=== PATIENT | male | born 1965 | race Caucasian/White ===

== ENCOUNTER 2024-06-05 14:49 | Emergency (ER) | payer OTHER, SELFPAY ==
[2024-06-05 14:57] VITALS: BP 177/110
[2024-06-05 15:08] VITALS: BP 161/92
--- NOTE | 2024-06-05 15:21 | ED.GENMED ---
History of Present Illness
General
Chief Complaint: Eye Problems
Source: patient
Exam Limitations: none
Time Seen by Provider: 06/05/24 15:04
Nursing documentation reviewed up to this point in time: agreed with
History of Present Illness
History of Present Illness:
Patient is a 58 year old male presenting to the emergency department for xray of his right orbit. Patient has an MRI scheduled of his brain tomorrow and was called by the MRI telemarketing supervisor stating that he needed an x-ray of his orbit to rule out
retained metal in right eye following injury > 25 years ago prior to receiving MRI.
Patient describes an injury at work occurring about 25 years ago where a drill bit went into his right eye. He had emergency surgery at that time. He has had no complications since. He has no reason to believe there is any retained metal.
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
Patient has no current complaints today. He simply came to the emergency department to receive x-ray of his orbit.
Review of Systems
Review of Systems
Allergies reviewed?: Yes
All Other Systems: ROS reviewed and negative except as documented in HPI and ROS
Phy Exam
Physical Exam
Physical Exam:
Vitals: Patient's vital signs are stable. Afebrile
General: Patient is well appearing, no acute distress
Skin: Warm and dry, no rashes or lesions
Head: Normocephalic, atraumatic
Eyes: No obvious trauma to right orbit. No proptosis. No obvious foreign body. No tearing. Sclera nonicteric. EOMs intact. No nystagmus.
Throat: Protecting airway
Neck: Normal ROM, no cervical spine tenderness, no meningismus
Cardiac: Regular rate and rhythm, no murmurs.
Pulm: Normal respiratory effort, no wheezes, rales, rhonchi heard on exam.
Abdomen: No abdominal tenderness.
Extremities: No evidence of cyanosis or edema
Neuro: Grossly intact.
Psychiatric: Normal affect.
Course
Orders/Labs/Results
Orders:
Orders
06/05/24 15:21
CR Orbits - Pre Mri Urgent
Comment: s/p injury 25 years ago; MRI brain tomorrow
Reason For Exam: Eval right orbit r/o metal
Vital Signs
Initial and Last Documented VS:
Initial Vital Signs
Temp Pulse Resp BP Pulse Ox
98.0 F 91 16 177/110 98
06/05/24 14:57 06/05/24 14:57 06/05/24 14:57 06/05/24 14:57 06/05/24 14:57
Last Documented Vital Signs
Temp Pulse Resp BP Pulse Ox
98.0 F 89 16 161/92 98
06/05/24 14:57 06/05/24 15:08 06/05/24 15:08 06/05/24 15:08 06/05/24 14:57
MDM/Problems Addressed
Differential Diagnosis Includes:
Known to: Screening exam for MRI
MDM/Problems Addressed:
58-year-old male presenting for x-ray of right orbit as screening exam prior to MRI tomorrow. Patient had work injury over 25 years ago with a drill bit went into his right eye. This was operated on at the time of injury. No known foreign body in
right eye. Patient has outpatient MRI scheduled tomorrow by his neurologist�need to rule out any metal in right eye prior to the study. Patient has no current complaints today. No other concerns. Patient hypertensive, otherwise no significant
abnormalities. Physical exam as above. Patient well-appearing, in no apparent distress. No obvious signs of trauma. Right eye without any obvious foreign body or signs of trauma. Patient without any focal neurologic deficits on exam. An x-ray
of the orbit was obtained which show no evidence of radiopaque foreign body. Patient given report of x-ray. Stable for discharge and to proceed with MRI as scheduled. Return precautions discussed. Case discussed with attending physician.
Chronic conditions affecting care:
N/A
Acute Exacerbation and/or Progression of Chronic Illness:
N/A
*Radiology
Radiology exam reviewed: preliminary read by ED provider and radiology read reviewed (No evidence of radiopaque foreign body)
*Pulse Oximetry
Patient hypoxic: no
*EKG
Interpreted by ED Provider?: NA
*Field Assembly Supervisor Interpretation
Rate: Field Assembly Supervisor- N/A
*Critical Care Note
Total Time (30-74mins, 75-104mins- exclusive of procedures): Not Applicable
ED Attending Note
-
Portions of this chart may have been created with voice recognition software.� Occasional wrong word or��sound alike� substitutions may have occurred due to the inherent limitations of voice recognition software.
Discharge Plan
Departure
Patient Disposition: Home (Routine Discharge)
Date of Disposition: 06/05/24
Time of Disposition: 15:58
Patient with high blood pressure during this ER visit?: Yes
Condition: Good
Covid-19: Not Applicable
Discharge Problem:
Medical screening exam for MRI
Referrals:
NONE,* [Family Provider] -
Activity Restrictions/Additional Instructions:
-RETURN TO THE EMERGENCY DEPARTMENT WITH ANY SEVERE HEADACHE, HIGH FEVERS, CHEST PAIN, SHORTNESS OF BREATH, OR ANY OTHER CONCERNS
As discussed�your x-ray showed no evidence of a foreign body today. You should keep your appointment for your MRI as scheduled for tomorrow. Ret.urn to the emergency department with any further concerns
Follow-up with primary care / neurology as needed for further care
Interventions
Interventions:
*Risk Screen - Suicide Last Done: 06/05/24 14:57
*General Assessment Last Done: 06/05/24 16:09
*Neglect/Abuse Screening Last Done: 06/05/24 14:57
*Nursing Disposition Last Done: 06/05/24 16:09
Discharge Date and Time
Discharge Date/Time: 06/05/24 16:09
Print Language: ICELANDIC
== END 2024-06-05 16:09 | disposition home or self-care (01) ==
LOC: EMR 14:49
PROVIDERS: EMERGENCY PHYSICIAN Emergency Medicine
DX: Z13.9 Encounter for screening, unspecified (principal); R03.0 Elevated blood-pressure reading, without diagnosis of hypertension; Z87.820 Personal history of traumatic brain injury
CPT/HCPCS: 99283; 70030

== ENCOUNTER → 2024-06-06 07:14 | Outpatient (REF) | payer OTHER, SELFPAY | LOC: PAVMRI 07:14 | PROVIDERS: ATTENDING PHYSICIAN Nurse Practitioner | DX: S06.0X0A Concussion without loss of consciousness, initial encounter (principal); F07.81 Postconcussional syndrome | CPT/HCPCS: 70551 ==

== ENCOUNTER 2024-09-07 06:17 | Day surgery (SDC) | payer OTHER, SELFPAY | END 2024-09-07 10:01 | disposition home or self-care (01) | LOC: GI 06:17 | PROVIDERS: ATTENDING PHYSICIAN Internal Medicine Gastroenterology | DX: D12.5 Benign neoplasm of sigmoid colon (principal); K63.89 Other specified diseases of intestine; K57.30 Diverticulosis of large intestine without perforation or abscess without bleeding; K64.8 Other hemorrhoids; R19.4 Change in bowel habit; K29.70 Gastritis, unspecified, without bleeding; K31.89 Other diseases of stomach and duodenum; K31.7 Polyp of stomach and duodenum; K21.9 Gastro-esophageal reflux disease without esophagitis | CPT/HCPCS: 45380; 43239; 88305; 88342 ==